=== PATIENT | female | born 1980 ===

== ENCOUNTER 2017-08-10 17:05 | Outpatient (CLI) | payer OTHER ==
--- NOTE | 2017-08-14 14:18 | Ultrasound Report ---
FINAL REPORT PROCEDURE: US OB BPP WO NON-STRESS TECHNIQUE: Sonographic evaluation for breathing, movement, tone, and amniotic fluid volume was performed. CPT 45765 HISTORY: pt is 40wks today COMPARISON: No prior studies are available for comparison. FINDINGS: There is a single living intrauterine gestation currently visualized in the vertex presentation with a heart rate of 150 beats per minute. Subjectively the amount of amniotic fluid appears normal. The amniotic fluid index is 10.2 centimeter. Detailed exam of the anatomy was not performed as this was not requested. Grade 2 placenta visualized anteriorly. The entire placenta is not visualized. Amniotic fluid volume: Normal-score 2. At least one vertical pocket > 2 cm or more in vertical axis. breathing: Normal-score 2. movement: Normal-score 2. tone: Normal. Score: 8 of 8. IMPRESSION: Normal biophysical profile. Single living intrauterine gestation visualized currently vertex presentation. Subjectively and by amniotic fluid index the amount of amniotic fluid appears normal.
--- NOTE | 2017-08-14 14:18 | Ultrasound Report ---
FINAL REPORT PROCEDURE: US OB LIMITED TECHNIQUE: Real-time limited sonographic examination was performed for evaluation of size, position, heartbeat, fluid volume for each fetus with image documentation (1 or more fetuses). CPT 64432 HISTORY: pt is 40wks today COMPARISON: No prior studies are available for comparison. FINDINGS: There is a single living intrauterine gestation currently visualized in the vertex presentation with a heart rate of 150 beats per minute. Subjectively the amount of amniotic fluid appears normal. Normal amniotic fluid index measured at 10.2 centimeters. Grade 2 placenta visualized anteriorly. The portion visualized showed no abruption. Internal cervical os was not visualized. Detailed exam of the anatomy was not performed as this was not requested. No other additional information. IMPRESSION: Single living intrauterine gestation currently visualize vertex presentation. Subjectively and by amniotic fluid index the amount of amniotic fluid appears normal.
== END 2017-08-10 19:06 | disposition home or self-care (01) ==
LOC: TRG 17:05
PROVIDERS: ATTEND Obstetrics & Gynecology
DX: O47.1 False labor at or after 37 completed weeks of gestation (principal); Z3A.40 40 weeks gestation of pregnancy
CPT/HCPCS: 59025; 76815; 76819

== ENCOUNTER 2017-08-16 20:10 | Inpatient (IN) | payer OTHER ==
[2017-08-16] MEDS ORDERED: BRETHINE SUB-Q PRN (22:43)
[2017-08-16] MEDS ORDERED: NARCAN 0.4 MG/1 ML IV PRN (22:43)
[2017-08-16] MEDS ORDERED: SUBLIMAZE IV PRN (22:43)
[2017-08-16] MEDS ORDERED: CERVIDIL VG ONE (22:43)
[2017-08-16] MEDS ORDERED: MINERAL OIL PO PRN (22:43)
[2017-08-16] MEDS ORDERED: XYLOCAINE 2% INFILTRATI ONE (22:43)
[2017-08-16] MEDS ORDERED: PHENERGAN PO PRN (22:43)
[2017-08-16] MEDS ORDERED: STADOL IV PRN (22:43)
[2017-08-16] MEDS ORDERED: BRETHINE IVP PRN (22:43)
[2017-08-16] MEDS ORDERED: ePHEDrine SULFATE IV PRN (22:43)
[2017-08-16] MEDS ORDERED: ZOFRAN IV PRN (22:43)
--- NOTE | 2017-08-16 22:53 | History and Physical Report ---
History of Present Illness Date of examination: 08/16/17 Date of admission: 08/16/17 20:12 Chief complaint: Induction of labor History of present illness: Pt is a 36yo IF EDC 08/10/17; EGA 40 6/7 weeks presents for induction of labor. She received care at [facility] since 21 weeks and course has been unremarkable except for AMA. She was seen by a [employer] for palpitations, and was cleared. records are available and GBS is Negative. 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 Family/Genetic History: none Social history: no significant social history, - Obstetrical History Expected Date of Delivery: 08/10/17 Actual Gestation: 41 Week(s) 0 Day(s) : 1 Medications and Allergies Allergies Allergy/AdvReac Type Severity Reaction Status Date / Time No Known Allergies Allergy Verified 08/16/17 23:21 Home Medications Medication Instructions Recorded Confirmed Last Taken Type No Known Home Medications [No 08/10/17 08/16/17 Unknown History Reported Home Medications] Active Meds: Active Medications Butorphanol Tartrate (Stadol) 2 mg IV Q2H PRN PRN Reason: Pain , Severe (7-10) Dinoprostone (Cervidil) 10 mg VG ONCE ONE Stop: 08/16/17 22:44 Ephedrine Sulfate (Ephedrine Sulfate) 10 mg IV Q2M PRN PRN Reason: Hypotension Fentanyl (Sublimaze) 100 mcg IV Q2H PRN PRN Reason: Labor Pain Lactated Ringer's (Lactated Ringers) 1,000 mls @ 125 mls/hr IV DIRECT RUBIO Oxytocin/Sodium Chloride (Pitocin/Ns 20 Unit/1000ml Drip) 20 units in 1,000 mls @ 125 mls/hr IV DIRECT RUBIO Oxytocin/Sodium Chloride (Pitocin/Ns 30 Unit/500ml) 30 units in 500 mls @ 4 mls /hr IV TITR RUBIO; Protocol Oxytocin/Sodium Chloride (Pitocin/Ns 30 Unit/500ml) 30 units in 500 mls @ 1 mls /hr IV TITR RUBIO; Protocol Lidocaine (Xylocaine 2%) 20 ml INFILTRATI ONCE ONE Stop: 08/16/17 22:44 Mineral Oil (Mineral Oil) 30 ml PO QHS PRN PRN Reason: Constipation Naloxone HCl (Narcan 0.4 Mg/1 Ml) 0.1 mg IV Q2MIN PRN PRN Reason: Res Rate </= 8 or 02 SAT < 92% Ondansetron HCl (Zofran) 4 mg IV Q8H PRN PRN Reason: Nausea And Vomiting Promethazine HCl (Phenergan) 25 mg PO Q6H PRN PRN Reason: Nausea And Vomiting Terbutaline Sulfate (Brethine) 0.25 mg SUB-Q ONCE PRN PRN Reason: Hyperstimulation/Hypertonicity Terbutaline Sulfate (Brethine) 0.25 mg IVP ONCE PRN PRN Reason: Hyperstimulation/Hypertonicity Review of Systems All systems: negative - Vital Signs Vital signs: Vital Signs Temp Pulse Resp BP 98.1 F 82 18 110/74 08/16/17 21:06 08/16/17 21:06 08/16/17 21:06 08/16/17 21:06 Temp Pulse Resp BP Pulse Ox 98.1 F 82 18 110/74 08/16/17 21:06 08/16/17 21:06 08/16/17 21:06 08/16/17 21:06 - Physical Exam Breasts: Positive: deferred Cardiovascular: Regular rate Lungs: Positive: Clear to auscultation Abdomen: Positive: normal appearance Genitourinary (Female): Positive: normal external genitalia Vagina: Positive: normal moisture Uterus: Positive: enlarged Extremities: Positive: normal - Obstetrical FHR: category 1 Uterine Contraction Monitor Mode: External Cervical Dilatation: 0.5 (per nurse) Cervical Effacement Percentage: 50 (per nurse) station: -2 Results Result Diagrams: 08/16/17 22:00 All other labs normal. Assessment and Plan - Patient Problems (1) 40 weeks gestation of Onset Date: 08/16/17 Current Visit: Yes Status: Acute Plan to address problem: A: IUP @ 40 6/7 weeks AMA P: Admit for cervidil/pitocin induction of labor
[2017-08-16] MEDS ORDERED: PITOCin/NS 30 UNIT/500ML 30 UNITS/500 ML BAG IV SCH ×2 (23:00)
[2017-08-16] MEDS ORDERED: PITOCin/NS 20 UNIT/1000ML DRIP 20 UNITS/1,000 ML BAG IV SCH (23:00)
[2017-08-17 00:12] LABS: Hematocrit 33.9 % (30.3-42.9); Hemoglobin 11.1 gm/dl (10.1-14.3); Mean Corpuscular HGB Conc 33 % (30-34); Mean Corpuscular Hemoglobin 27 pg (28-32); Mean Corpuscular Volume 83 fl (79-97); Platelet Count 266 K/mm3 (140-440); Red Cell Distribution Width 15.5 % (13.2-15.2)
--- NOTE | 2017-08-17 13:13 | Progress Note ---
Assessment and Plan - Patient Problems (1) 40 weeks gestation of Onset Date: 08/16/17 Current Visit: Yes Status: Acute Plan to address problem: A: IUP @ 41 0/7 weeks AMA P: Continue with cervidil/pitocin induction of labor Subjective - Subjective Date of service: 08/17/17 Principal diagnosis: IUP @ 41 0/7 weeks Interval history: Pt is a 36yo IF EDC 08/10/17; EGA 41 0/7 weeks presented for induction of labor. She received cervidil last night, and removed this morning without any significant cervical change despite RUC's. Patient reports: movement normal, contractions, no new complaints, no loss of fluid, no vaginal bleeding Objective - Vital Signs Vital Signs: Vital Signs - 12hr 08/17/17 08/17/17 08/17/17 02:16 08:13 12:37 Temperature 97.7 F 98.3 F 98.0 F Pulse Rate 68 69 Respiratory 20 18 Rate Blood Pressure 112/70 109/69 [Right] O2 Sat by Pulse 96 Oximetry - Exam Abdomen: Present: normal appearance, soft FHR: category 1 Uterine Contraction Monitor Mode: External Uterine Contraction Pattern: Regular Uterine Tone Measurement Phase: Contraction Uterine Contraction Intensity: Mild - Labs Labs: Abnormal Labs 08/16/17 22:00 MCH 27 L RDW 15.5 H Laboratory Results - last 24 hr 08/16/17 08/16/17 22:00 22:00 WBC 9.7 RBC 4.10 Hgb 11.1 Hct 33.9 MCV 83 MCH 27 L MCHC 33 RDW 15.5 H Plt Count 266 Blood Type B POSITIVE Antibody Screen Negative
[2017-08-17] MEDS: LACTATED RINGERS 1,000 ML IV SCH (16:44)
[2017-08-17] MEDS ORDERED: AMBIEN PO PRN (20:52)
[2017-08-17] MEDS ORDERED: CERVIDIL VG ONE (20:52)
[2017-08-18] MEDS: LACTATED RINGERS 1,000 ML IV SCH ×2 (09:57→16:22)
--- NOTE | 2017-08-18 12:55 | Progress Note ---
Assessment and Plan - Patient Problems (1) 40 weeks gestation of Onset Date: 08/16/17 Current Visit: Yes Status: Acute Plan to address problem: A: IUP @ 41 1/7 weeks AMA P: Continue with cervidil/pitocin induction of labor Subjective - Subjective Date of service: 08/18/17 Principal diagnosis: IUP @ 41 1/7 weeks Interval history: Pt is a 36yo IF EDC 08/10/17; EGA 41 1/7 weeks presented for induction of labor. She received cervidil x 2 nights, and currently on Pitocin 2mu/min and jasmin occasionally. Pt desires epidural before AROM. Patient reports: movement normal, contractions, no new complaints, no loss of fluid, no vaginal bleeding Objective - Vital Signs Vital Signs: Vital Signs - 12hr 08/18/17 07:40 Temperature 97.0 F L Respiratory 20 Rate - Exam Abdomen: Present: normal appearance, soft Uterus: Present: normal FHR: category 1 Uterine Contraction Monitor Mode: External Cervical Dilatation: 1.5 Cervical Effacement Percentage: 50 Uterine Contraction Pattern: Irregular Uterine Tone Measurement Phase: Contraction Uterine Contraction Intensity: Moderate - Labs Labs: Abnormal Labs 08/16/17 22:00 MCH 27 L RDW 15.5 H Laboratory Results - last 24 hr 08/16/17 22:00 RPR Nonreactive
[2017-08-18] MEDS ORDERED: ePHEDrine SULFATE IV PRN (16:28)
[2017-08-18] MEDS ORDERED: NARCAN 2 MG/2 ML IV PRN (16:28)
--- NOTE | 2017-08-18 16:28 | Anesthesia Consultation ---
Anesthesia Consult and Med Hx Date of service: 08/18/17 - Airway Anesthetic Teeth Evaluation: Good ROM Head & Neck: Adequate Mental/Hyoid Distance: Adequate Mallampati Class: Class II Intubation Access Assessment: Probably Good - Pre-Operative Health Status ASA Pre-Surgery Classification: ASA2 Proposed Anesthetic Plan: Epidural, Spinal - Pulmonary Hx Asthma: No - Cardiovascular System Hx Hypertension: No - Central Nervous System Hx Seizures: No Hx Psychiatric Problems: No - Endocrine Hx Renal Disease: No Hx Hypothyroidism: No Hx Hyperthyroidism: Yes - Hematic Hx Anemia: No Hx Sickle Cell Disease: No - Other Systems Hx Alcohol Use: No
[2017-08-18] MEDS: fentaNYL-BUPIV 2 MCG/ML-0.125% 200 MCG/100 ML BAG EPIDURAL SCH (17:22)
[2017-08-19] MEDS: fentaNYL-BUPIV 2 MCG/ML-0.125% 200 MCG/100 ML BAG EPIDURAL SCH (01:35)
[2017-08-19] MEDS: LACTATED RINGERS 1,000 ML IV SCH (01:41)
--- NOTE | 2017-08-19 04:00 | Procedure Note ---
OB Delivery Note - Delivery Date of Delivery: 08/19/17 Surgeon: ARIA MCELROY Estimated blood loss: 300cc - Vaginal Delivery presentation: vertex Delivery position: OA Intrapartum events: prolonged latent phase Delivery induction: cervidil Delivery augmentation: rupture of membranes, pitocin Delivery monitor: external FHT, external uterine Route of delivery: Delivery placenta: spontaneous Delivery cord: nuchal cord, 3 umbilical vessels Episiotomy: none Delivery laceration: 1st degree (perineal) Delivery repair: vicryl Anesthesia: epidural Delivery comments: Infant delivered OA and placed on Mom's chest for [id number] bonding and delayed cord clamping, cut by Dad - A at 1 minute: 8 at 5 minutes: 9 Infant Gender: Female (3289gms)
[2017-08-19] MEDS ORDERED: NORCO 5/325 PO PRN (04:02)
[2017-08-19] MEDS ORDERED: PHENERGAN PO PRN (04:02)
[2017-08-19] MEDS ORDERED: DULCOLAX PR PRN (04:02)
[2017-08-19] MEDS ORDERED: LANSINOH TP PRN (04:02)
[2017-08-19] MEDS ORDERED: PHENERGAN PR PRN (04:02)
[2017-08-19] MEDS ORDERED: TUCKS PAD TP PRN (04:02)
[2017-08-19] MEDS ORDERED: TYLENOL PO PRN (04:02)
[2017-08-19] MEDS ORDERED: BENADRYL PO PRN (04:02)
[2017-08-19] MEDS ORDERED: MILK OF MAGNESIA PO PRN (04:02)
[2017-08-19] MEDS ORDERED: ZOFRAN IV PRN (04:02)
[2017-08-19] MEDS ORDERED: SODIUM CHLORIDE FLUSH SYRINGE 10 ML IV PRN (05:00)
[2017-08-19] MEDS ORDERED: PITOCin/NS 20 UNIT/1000ML DRIP 20 UNITS/1,000 ML BAG IV SCH (05:00)
[2017-08-19] MEDS: MOTRIN PO SCH ×2 (06:45→12:00)
[2017-08-19] MEDS: COLACE PO SCH ×2 (10:30→21:20)
[2017-08-19] MEDS: PRENATAL VITAMIN PO SCH (10:30)
[2017-08-19] MEDS: FEOSOL PO SCH ×2 (10:30→21:20)
[2017-08-19 17:01] LABS: Hematocrit 30.9 % (30.3-42.9); Hemoglobin 10.2 gm/dl (10.1-14.3)
[2017-08-20] MEDS: MOTRIN PO SCH ×2 (00:05→06:03)
[2017-08-20] MEDS ORDERED: M-M-R II VACCINE SUB-Q ONE (04:02)
[2017-08-20] MEDS ORDERED: BOOSTRIX IM ONE (06:00)
--- NOTE | 2017-08-20 09:31 | Progress Note ---
Assessment and Plan - Patient Problems (1) 40 weeks gestation of Onset Date: 08/16/17 Current Visit: Yes Status: Resolved (2) (normal spontaneous vaginal delivery) Onset Date: 08/20/17 Current Visit: Yes Status: Resolved Plan to address problem: A: S/P - PPD #1 Doing well Asymptomatic anemia - stable P: May go home today. Subjective - Subjective Date of service: 08/20/17 Principal diagnosis: s/p - PPD #1 Interval history: Pt is feeling well without complaints. Bleeding improved. Patient reports: appetite normal, voiding normally, pain well controlled, flatus , ambulating normally, no dizzy ambulation, no nauseated : doing well, nursing well Objective - Vital Signs Latest vital signs: Vital Signs Temp Pulse Resp BP Pulse Ox 08/20/17 00:15 83 20 118/70 98 08/19/17 17:25 98.8 F 80 18 112/72 08/19/17 13:10 98.5 F 88 18 115/76 Intake and Output 08/19/17 08/20/17 08/20/17 22:59 06:59 14:59 Intake Total 240 360 Balance 240 360 Intake: Oral 240 360 Other: Total, Intake Amount 240 120 # Voids Indwelling Catheter 1 Void 1 - Exam Breasts: Present: deferred Cardiovascular: Present: Regular rate Lungs: Present: Clear to auscultation Abdomen: Present: normal appearance, soft Uterus: Present: normal, firm, fundal height below umbilicus Extremities: Present: normal - Labs Labs: Laboratory Tests 08/16/17 08/16/17 08/16/17 22:00 22:00 22:00 WBC 9.7 RBC 4.10 Hgb 11.1 Hct 33.9 MCV 83 MCH 27 L MCHC 33 RDW 15.5 H Plt Count 266 RPR Nonreactive Blood Type B POSITIVE Antibody Screen Negative 08/19/17 16:18 WBC RBC Hgb 10.2 Hct 30.9 MCV MCH MCHC RDW Plt Count RPR Blood Type Antibody Screen
--- NOTE | 2017-08-20 09:41 | Discharge Summary ---
Providers - Providers Date of Admission: 08/16/17 20:12 Date of discharge: 08/20/17 Attending physician: ARIA MCELROY Primary care physician: ARIA MCELROY Hospitalization Reason for admission: induction of labor, IUP at term Delivery: Episiotomy: none Laceration: 1st degree Other procedures: none complications: none Discharge diagnosis: IUP at term delivered baby: female Hospital course: Unremarkable. Condition at discharge: Good Disposition: DC-01 TO HOME OR SELFCARE - Discharge Diagnoses (1) 40 weeks gestation of Status: Resolved (2) (normal spontaneous vaginal delivery) Status: Resolved Plan - Discharge Medications Prescriptions: Ferrous Sulfate [Feosol 325 MG tab] 325 mg PO BID #60 tablet Ibuprofen [Motrin 600 MG tab] 600 mg PO Q6HR #30 tablet Vit-Fe Fumar-FA [ Vitamin] 1 each PO QDAY #30 tablet - Provider Discharge Summary Activity: routine, no sex for 6 weeks, no heavy lifting 4 weeks, no strenuous exercise Diet: routine Instructions: routine Additional instructions: [] Smoking cessation referral if applicable(refer to patient education folder for contact #) [] Refer to [facility]'s [facility] Booklet Call your doctor immediately for: * Fever > 100.5 * Heavy vaginal bleeding ( >1 pad per hour) * Severe persistent headache * Shortness of breath * Reddened, hot, painful area to leg or breast * Drainage or odor from incision. * Keep incision clean and dry at all times and follow doctor's instructions regarding bathing/showering - Follow up plan Follow up: ARIA MCELROY MD [Primary Care Provider] - 6 Weeks
[2017-08-20] MEDS: FEOSOL PO SCH (10:29)
[2017-08-20] MEDS: PRENATAL VITAMIN PO SCH (10:29)
[2017-08-20 16:42] VITALS: BP 105/66
== END 2017-08-20 16:45 | disposition home or self-care (01) | DRG 775 ==
LOC: TRG 20:10 → LD 20:12 → OB 08-19 06:30
PROVIDERS: ADMIT Obstetrics & Gynecology; ATTEND Obstetrics & Gynecology
PROC: 10E0XZZ Delivery of Products of Conception, External Approach (ICD-10-PCS; principal; 2017-08-19)
PROC: 3E0234Z Introduction of Serum, Toxoid and Vaccine into Muscle, Percutaneous Approach (ICD-10-PCS; 2017-08-19)
PROC: 0HQ9XZZ Repair Perineum Skin, External Approach (ICD-10-PCS; 2017-08-19)
PROC: 3E0R3BZ Introduction of Anesthetic Agent into Spinal Canal, Percutaneous Approach (ICD-10-PCS; 2017-08-19)
PROC: 00HU33Z Insertion of Infusion Device into Spinal Canal, Percutaneous Approach (ICD-10-PCS; 2017-08-19)
DX: O69.81X0 Labor and delivery complicated by cord around neck, without compression, not applicable or unspecified (principal); O63.9 Long labor, unspecified; Z3A.40 40 weeks gestation of pregnancy; Z23 Encounter for immunization; O70.0 First degree perineal laceration during delivery; O99.02 Anemia complicating childbirth; D64.9 Anemia, unspecified; O99.284 Endocrine, nutritional and metabolic diseases complicating childbirth; E05.90 Thyrotoxicosis, unspecified without thyrotoxic crisis or storm; Z37.0 Single live birth
CPT/HCPCS: 36415; 59200; 85014; 85018; 85027; 86592; 86850; 86900; 86901; 90707; J2590; J7120